=== PATIENT | female | born 1985 | race Two or more races ===

== ENCOUNTER 2018-10-17 06:18 | Day surgery (SDC) | payer OTHER ==
[2018-10-15 15:12] LABS: BASOPHILS 0.4 % (0-2); EOSINOPHILS 1.3 % (0-7); HEMATOCRIT 40.9 % (36.0-48.0); HEMOGLOBIN 13.7 g/dL (12-16); IMMATURE GRANULOCYTES 0.2 % (0-5); LYMPHOCYTES 29.7 % (15-50); MCH 26.3 pg (26.0-34.0); MCHC 33.5 g/dL (31.0-37.0); MCV 78.7 fL (80.0-100.0); MEAN PLATELET VOLUME 10.5 fL (7.4-10.4); NEUTROPHILS 61.4 % (40-80); PLATELET COUNT 275 10x3/uL (130-400); RDW 14.8 % (11.5-14.5); WBC 8.2 10x3/uL (4.8-10.8)
[2018-10-17 08:21] VITALS: BP 130/58; BMI 29.1
[2018-10-17 08:33] LABS: HCG URINE NEGATIVE (NEGATIVE)
--- NOTE | 2018-10-17 10:45 | NUR ---
REC'D PT FROM [facility]. FAMILY AT BEDSIDE. PATIENT WAS TEARFUL BUT DID NOT RELATE WHY. ICE WATER AND FL TRAY BROUGHT TO PT.
--- NOTE | 2018-10-17 11:15 | NUR ---
CONTINUES TO BE TEARFUL. AT BEDSIDE.
--- NOTE | 2018-10-17 11:45 | NUR ---
EATING FL DIET. NO LONGER TEARFUL. EXPLAINED DC CRITERIA TO PT AND SPOUSE.
--- NOTE | 2018-10-17 12:25 | NUR ---
AMBULATED TO BATHROOM AND VOIDED WITHOUT DIFFICULTY. IV DC'D WITH CATHETER INTACT.
--- NOTE | 2018-10-17 12:30 | NUR ---
SPOKE WITH DR COCHRAN AND DC ORDERS RECEIVED.
--- NOTE | 2018-10-17 12:45 | NUR ---
WRITTEN AND VERBAL DC INST. GIVEN TO PT. VERBALIZED UNDERSTANDING. DR COCHRAN GAVE SPOUSE PATIENT'S RX FOR PAIN MED.
--- NOTE | 2018-10-17 12:50 | NUR ---
DC'D HOME WITH FAMILY VIA PRIVATE VEHICLE. TAKEN TO VEHICLE VIA WC. STABLE AT TIME OF DC.
--- NOTE | 2018-11-13 19:34 | OP ---
PATIENT NAME: TRACIE JOSE MEDICAL RECORD: [id number] :81 LOCATION:D.OPS ADMISSION DATE: SURGEON: RONALDO MERA MD DATE OF OPERATION: 10/17/2018 PREOPERATIVE DIAGNOSES: Menorrhagia and uterine fibroids. POSTOPERATIVE DIAGNOSIS: Menorrhagia and uterine fibroids. PROCEDURE: Hysteroscopy, D and C. SURGEON: Ronaldo Mera MD ANESTHESIA: General by LMA. INTRAVENOUS FLUIDS: Per anesthesia record. HYSTEROSCOPIC FLUID LOSS: Approximately 100 cc of 0.9 normal saline. COMPLICATIONS: None apparent. SPECIMENS: Endometrial curettings. PROCEDURE IN DETAIL: The patient was taken to the operating room, where general anesthesia was achieved without any difficulty. The patient was then prepped and draped in normal sterile fashion in the dorsal lithotomy position in the [facility]. The patient was prepped and draped and approximately 50 cc of clear yellow urine were drained from the bladder. A Graves speculum was then placed in the vagina and cervix was identified and grasped on its anterior lip with single tooth tenaculum. The patient sounded to approximately 9 cm. The patient was dilated to approximately 6 mm, at which point, the hysteroscope was placed into the uterine cavity. The uterine cavity looked grossly normal and removal hysteroscope was then performed followed by curetting with a #1 curette in all 4 quadrants. The tenaculum was removed and only scant bleeding was noted from the cervical os. The speculum was then removed. The patient tolerated the procedure well, transferred to postanesthesia recovery stable without incident. TRANSINT:[id number] Voice Confirmation ID: [id number] DOCUMENT ID: [id number] RONALDO MERA MD at 1934 CC: [id number] DICTATION DATE: 11/09/18 1450 HAND PAINTER: 11/09/18 1907 [facility] 10/17/18 [facility] [address] [place] [address]
== END 2018-10-17 12:50 | disposition home or self-care (01) ==
LOC: D.OPS 06:18 → D.PAN 07:30 → D.OPS 09:00
PROVIDERS: ATTEND Obstetrics & Gynecology
DX: N92.0 Excessive and frequent menstruation with regular cycle (principal); D25.9 Leiomyoma of uterus, unspecified; Z01.812 Encounter for preprocedural laboratory examination